=== PATIENT | male | born 1985 | race Caucasian/White ===

== ENCOUNTER 2020-12-22 21:42 | Emergency (ER) | payer BC, OTHER ==
[~2020-12-22] VITALS: Ht 185.4 cm; Wt 80.0 kg
[2020-12-23 00:19] VITALS: BP 109/67
[2020-12-23] MEDS ORDERED: DOCUSATE 100 MG CAPSULE PO ONE (00:30)
[2020-12-23] MEDS ORDERED: POLYETHYLENE GLYCOL 17 GM PACKET NG ONE (00:30)
--- NOTE | 2020-12-23 00:45 | NUR ---
PT PRESENTS TO ED WITH CONSTIPATION AFTER 1 DAY. PT RESTING ON GURNEY, PLACED ON CONTINUOUS MONITORING.
--- NOTE | 2020-12-23 01:02 | NUR ---
Patient given discharge instructions and they have confirmed that they understand the instructions. Patient ambulatory with steady gait.
== END 2020-12-23 01:04 | disposition home or self-care (01) ==
LOC: ED 12-23 00:16
DX: K59.00 Constipation, unspecified (principal)
CPT/HCPCS: 74021; 99283